=== PATIENT | male | born 1980 | race Caucasian/White ===

== ENCOUNTER 2024-09-19 11:36 | Inpatient (IN) | payer OTHER ==
[2024-09-19] MEDS ORDERED: BENZOCAINE/MENTHOL (CHLORASEPTIC ) LOZENGE MM PRN (12:28)
[2024-09-19] MEDS ORDERED: ACETAMINOPHEN 325 MG TABLET (FP) PO PRN (12:28)
[2024-09-19] MEDS ORDERED: BISMUTH SUBSALICYLATE 262 MG/15 ML BTL PO PRN (12:28)
[2024-09-19] MEDS ORDERED: ONDANSETRON *ODT* 4 MG TABLET SL PRN (12:28)
[2024-09-19] MEDS ORDERED: BENZONATATE 200 MG CAPSULE PO PRN (12:28)
[2024-09-19] MEDS ORDERED: POLYETHYLENE GLYCOL (HEALTHYLAX) 3350 17 GM PACKET PO PRN (12:28)
[2024-09-19] MEDS ORDERED: NICOTINE POLACRILEX 2 MG LOZENGE BC PRN (12:28)
[2024-09-19] MEDS ORDERED: MAG HYDROX/AL HYDROX/SIMETH 30 ML UNIT-DOSE CUP PO PRN (12:28)
[2024-09-19] MEDS ORDERED: IBUPROFEN 400 MG TABLET (FP) PO PRN (12:28)
[2024-09-19] MEDS ORDERED: guaiFENesin 600 MG TABLET.ER (FP) PO PRN (12:28)
[2024-09-19] MEDS ORDERED: MAGNESIUM HYDROX 2400MG/30ML ORAL SUSPENSION 30 ML CUP PO PRN (12:28)
[2024-09-19] MEDS ORDERED: NALOXONE (NARCAN) HCL 4 MG/0.1 ML SPRAY NS PRN (12:28)
[2024-09-19] MEDS ORDERED: LOPERAMIDE HCL 2 MG CAPSULE PO PRN (12:28)
[2024-09-19] MEDS ORDERED: DICYCLOMINE HCL 10 MG CAPSULE PO PRN (12:28)
[2024-09-19 12:31] VITALS: BMI 23.1
[2024-09-19] MEDS: LIDOCAINE 5% TOPICAL PATCH TP SCH (14:45)
[2024-09-19] MEDS: METHOCARBAMOL 500 MG TABLET PO PRN (14:46)
[2024-09-19] MEDS: hydrOXYzine PAMOATE 25 MG CAPSULE (FP) PO PRN (14:46)
[2024-09-19 16:40] LABS: HIV INTERPRETATION NEGATIVE (NEGATIVE)
[2024-09-19] MEDS: diazePAM 5 MG TABLET PO ONE (16:50)
[2024-09-19] MEDS: diazePAM 5 MG TABLET PO SCH (17:05)
[2024-09-19] MEDS: LIDOCAINE PATCH REMOVAL MC SCH (22:04)
[2024-09-19] MEDS: MELATONIN 5 MG TABLETS PO SCH (22:07)
[2024-09-19] MEDS: OLANZapine 10 MG TABLET PO ONE (22:07)
[2024-09-19] MEDS: THIAMINE 100 MG TABLET PO SCH (22:07)
[2024-09-19] MEDS: GABAPENTIN 400 MG CAPSULE PO SCH (22:14)
[2024-09-19] MEDS: MIRTAZAPINE 15 MG TABLET (FP) PO ONE ×2 (22:14→22:15)
[2024-09-20] MEDS: GABAPENTIN 300 MG CAPSULE PO SCH (00:20)
[2024-09-20] MEDS ORDERED: methaDONE HCL 10 MG TABLET PO SCH (06:00)
[2024-09-20] MEDS ORDERED: methaDONE HCL 40 MG DISPERSABLE TABLET PO SCH (10:00)
[2024-09-20] MEDS: PRENATAL VITAMINS W/ FOLIC ACID TABLET (FP) PO SCH (10:08)
[2024-09-20] MEDS: SERTRALINE HCL 50 MG TABLET (FP) PO SCH (11:05)
[2024-09-20 13:44] LABS: HEMATOCRIT 41.6 % (35.4-49); HEMOGLOBIN 13.9 GM/dL (11.7-16.9); MCH 31.1 pg (25.7-33.7); MCHC 33.5 g/dl (32.0-35.9); MEAN CELL VOLUME 92.7 fl (80-96); MEAN PLT VOLUME 8.4 fl (7.5-11.1); PLATELET COUNT 305 10^3/uL (134-434); RBC 4.48 M/mm3 (4.00-5.60); RDW 13.4 % (11.9-15.9)
[2024-09-20 13:47] LABS: POTASSIUM 3.9 mmol/L (3.5-5.1)
[2024-09-20 13:58] LABS: CALCIUM 9.3 mg/dL (8.5-10.1)
[2024-09-20 13:59] LABS: ALBUMIN 3.8 g/dl (3.4-5.0)
[2024-09-20 14:02] LABS: CREATININE 1.1 mg/dL (0.55-1.3)
[2024-09-20 14:03] LABS: BILIRUBIN,TOTAL 0.3 mg/dL (0.2-1)
[2024-09-20 14:06] LABS: BLOOD UREA NITROGEN 8.2 mg/dL (7-18)
[2024-09-20] MEDS: IBUPROFEN 600 MG TABLET (FP) PO PRN (17:41)
[2024-09-21] MEDS: diazePAM 5 MG TABLET PO SCH (05:43)
[2024-09-22] MEDS: diazePAM 5 MG TABLET PO SCH (05:50)
[2024-09-22] MEDS: diazePAM 5 MG TABLET PO PRN (10:16)
[2024-09-22] MEDS: MIRTAZAPINE 15 MG TABLET (FP) PO SCH (22:18)
[2024-09-22] MEDS: OLANZapine 10 MG TABLET PO SCH (22:18)
[2024-09-23 09:17] VITALS: PULSE 95; RESP 18; TEMP 97.5
[2024-09-23] MEDS: NALOXONE (NYS OPIOID OVERDOSE PROGRAM) 4 MG/0.1 ML SPRAY NS SCH (10:05)
[2024-09-23 12:59] VITALS: BP 149/87
== END 2024-09-23 12:25 | disposition other institution (70) | DRG 773 ==
LOC: YASAS 11:36 → Y6N 13:42
PROVIDERS: ADMIT Allergy & Immunology; ATTEND Surgery
PROC: HZ2ZZZZ Detoxification Services for Substance Abuse Treatment (ICD-10-PCS; principal; 2024-09-19)
DX: F10.230 Alcohol dependence with withdrawal, uncomplicated (principal); F12.20 Cannabis dependence, uncomplicated; F11.20 Opioid dependence, uncomplicated; F14.20 Cocaine dependence, uncomplicated; F13.230 Sedative, hypnotic or anxiolytic dependence with withdrawal, uncomplicated; F17.210 Nicotine dependence, cigarettes, uncomplicated; F19.282 Other psychoactive substance dependence with psychoactive substance-induced sleep disorder; F19.280 Other psychoactive substance dependence with psychoactive substance-induced anxiety disorder; F19.24 Other psychoactive substance dependence with psychoactive substance-induced mood disorder; F31.9 Bipolar disorder, unspecified; B18.2 Chronic viral hepatitis C; Z62.810 Personal history of physical and sexual abuse in childhood
CPT/HCPCS: 36415; 80053; 80307; 85027; 86780; 86803; 87389; 87522; 93005; 93010

== ENCOUNTER 2024-09-23 12:15 | Inpatient (IN) | payer OTHER ==
[2024-09-23] MEDS ORDERED: BENZONATATE 200 MG CAPSULE PO PRN (15:49)
[2024-09-23] MEDS ORDERED: MAGNESIUM HYDROX 2400MG/30ML ORAL SUSPENSION 30 ML CUP PO PRN (15:49)
[2024-09-23] MEDS ORDERED: METHOCARBAMOL 500 MG TABLET PO PRN (15:49)
[2024-09-23] MEDS ORDERED: hydrOXYzine PAMOATE 25 MG CAPSULE (FP) PO PRN (15:49)
[2024-09-23] MEDS ORDERED: guaiFENesin 600 MG TABLET.ER (FP) PO PRN (15:49)
[2024-09-23] MEDS ORDERED: POLYETHYLENE GLYCOL (HEALTHYLAX) 3350 17 GM PACKET PO PRN (15:49)
[2024-09-23] MEDS ORDERED: BENZOCAINE/MENTHOL (CHLORASEPTIC ) LOZENGE MM PRN (15:49)
[2024-09-23] MEDS ORDERED: MAG HYDROX/AL HYDROX/SIMETH 30 ML UNIT-DOSE CUP PO PRN (15:49)
[2024-09-23] MEDS ORDERED: IBUPROFEN 400 MG TABLET (FP) PO PRN (15:49)
[2024-09-23] MEDS: ACETAMINOPHEN 325 MG TABLET (FP) PO PRN (17:43)
[2024-09-23] MEDS: PRENATAL VITAMINS W/ FOLIC ACID TABLET (FP) PO SCH (17:45)
[2024-09-23] MEDS: NICOTINE 14 MG/24 HOURS TOPICAL PATCH TD SCH (17:45)
[2024-09-23] MEDS: LIDOCAINE 5% TOPICAL PATCH TP SCH (17:45)
[2024-09-23] MEDS: MELATONIN 5 MG TABLETS PO SCH (21:38)
[2024-09-23] MEDS: MIRTAZAPINE 15 MG TABLET (FP) PO SCH (21:38)
[2024-09-23] MEDS: THIAMINE 100 MG TABLET PO SCH (21:38)
[2024-09-23] MEDS: GABAPENTIN 100 MG CAPSULE PO SCH (21:39)
[2024-09-23] MEDS: LIDOCAINE PATCH REMOVAL MC SCH (22:06)
[2024-09-24] MEDS ORDERED: methaDONE HCL 40 MG DISPERSABLE TABLET PO SCH (10:00)
[2024-09-24] MEDS: SERTRALINE HCL 50 MG TABLET (FP) PO SCH (10:21)
[2024-09-24] MEDS: OLANZapine 10 MG TABLET PO SCH (21:56)
[2024-09-24] MEDS: GABAPENTIN 400 MG CAPSULE PO SCH (21:56)
[2024-09-26] MEDS: LOPERAMIDE HCL 2 MG CAPSULE PO PRN (00:48)
[2024-10-02] MEDS: IBUPROFEN 600 MG TABLET (FP) PO PRN (06:31)
[2024-10-04 06:37] VITALS: RESP 16
[2024-10-06 06:25] VITALS: BP 149/91; PULSE 85; TEMP 97.3
[2024-10-06] MEDS: NALOXONE (NYS OPIOID OVERDOSE PROGRAM) 4 MG/0.1 ML SPRAY NS SCH (09:24)
== END 2024-10-06 09:43 | disposition home or self-care (01) | DRG 772 ==
LOC: YASAS 12:15 → Y3NR 13:05 → Y3W 21:45
PROVIDERS: ADMIT Psychiatry & Neurology Pain Medicine; ATTEND Family Medicine Addiction Medicine
PROC: HZ42ZZZ Group Counseling for Substance Abuse Treatment, Cognitive-Behavioral (ICD-10-PCS; principal; 2024-09-23)
DX: F10.20 Alcohol dependence, uncomplicated (principal); F11.20 Opioid dependence, uncomplicated; F14.20 Cocaine dependence, uncomplicated; F13.20 Sedative, hypnotic or anxiolytic dependence, uncomplicated; F17.210 Nicotine dependence, cigarettes, uncomplicated; F20.9 Schizophrenia, unspecified; F31.9 Bipolar disorder, unspecified; F19.282 Other psychoactive substance dependence with psychoactive substance-induced sleep disorder; F19.280 Other psychoactive substance dependence with psychoactive substance-induced anxiety disorder; F19.24 Other psychoactive substance dependence with psychoactive substance-induced mood disorder; F41.9 Anxiety disorder, unspecified; I10 Essential (primary) hypertension; Z86.19 Personal history of other infectious and parasitic diseases
CPT/HCPCS: 36415; 86803; 87522

== ENCOUNTER 2025-07-26 13:33 | Inpatient (IN) | payer OTHER ==
[2025-07-26 14:14] VITALS: BMI 25.2
[2025-07-26] MEDS ORDERED: NALOXONE (NARCAN) HCL 4 MG/0.1 ML SPRAY NS PRN (14:32)
[2025-07-26] MEDS ORDERED: BISMUTH SUBSALICYLATE 524 MG/30 ML PO PRN (14:32)
[2025-07-26] MEDS ORDERED: POLYETHYLENE GLYCOL (HEALTHYLAX) 3350 17 GM PACKET PO PRN (14:32)
[2025-07-26] MEDS ORDERED: NICOTINE POLACRILEX 2 MG GUM BUC PRN (14:32)
[2025-07-26] MEDS ORDERED: IBUPROFEN 400 MG TABLET (FP) PO PRN (14:32)
[2025-07-26] MEDS ORDERED: MAG HYDROX/AL HYDROX/SIMETH 30 ML UNIT-DOSE CUP PO PRN (14:32)
[2025-07-26] MEDS ORDERED: MAGNESIUM HYDROX 2400MG/30ML ORAL SUSPENSION 30 ML CUP PO PRN (14:32)
[2025-07-26] MEDS ORDERED: BENZOCAINE/MENTHOL (CHLORASEPTIC ) LOZENGE MM PRN (14:32)
[2025-07-26] MEDS ORDERED: ONDANSETRON *ODT* 4 MG TABLET SL PRN (14:32)
[2025-07-26] MEDS ORDERED: BENZONATATE 200 MG CAPSULE PO PRN (14:32)
[2025-07-26] MEDS ORDERED: guaiFENesin 600 MG TABLET.ER (FP) PO PRN (14:32)
[2025-07-26] MEDS ORDERED: ACETAMINOPHEN 325 MG TABLET (FP) PO PRN (14:32)
[2025-07-26] MEDS ORDERED: hydrOXYzine PAMOATE 25 MG CAPSULE (FP) PO PRN (14:32)
[2025-07-26] MEDS ORDERED: LOPERAMIDE HCL 2 MG CAPSULE PO PRN (14:32)
[2025-07-26] MEDS ORDERED: DICYCLOMINE HCL 10 MG CAPSULE PO PRN (14:32)
[2025-07-26] MEDS ORDERED: IBUPROFEN 600 MG TABLET (FP) PO PRN (14:32)
[2025-07-26] MEDS ORDERED: amLODIPine BESYLATE 5 MG TABLET (FP) ONE (17:38)
[2025-07-26] MEDS: amLODIPine BESYLATE 10 MG TABLET (FP) PO SCH (17:40)
[2025-07-26] MEDS: ACAMPROSATE CALCIUM 333 MG TABLET.DR PO SCH (22:17)
[2025-07-26] MEDS: MIRTAZAPINE 15 MG TABLET (FP) PO SCH (22:17)
[2025-07-26] MEDS: THIAMINE 100 MG TABLET PO SCH (22:18)
[2025-07-26] MEDS: MELATONIN 5 MG TABLETS PO SCH (22:18)
[2025-07-26] MEDS: GABAPENTIN 300 MG CAPSULE PO SCH (22:18)
[2025-07-26] MEDS: levETIRAcetam 500 MG TABLET (FP) PO SCH (22:18)
[2025-07-27] MEDS: PRENATAL VITAMINS W/ FOLIC ACID TABLET (FP) PO SCH (09:43)
[2025-07-27 10:18] LABS: MCHC 31.5 g/dl (32.3-36.5); MEAN CELL VOLUME 93.9 fl (79.0-92.2); MEAN PLT VOLUME 9.9 fl (9.4-12.4); RDW 12.4 % (12.1-15.9)
[2025-07-27 10:24] LABS: GLUCOSE,RANDOM 95 mg/dL (74-106); TOT PROT 6.3 g/dl (6.4-8.2)
[2025-07-27 10:25] LABS: CO2 28 mmol/L (21-32)
[2025-07-27 10:26] LABS: ALK PHOS 78 U/L (40-150)
[2025-07-27 10:29] LABS: CREATININE 0.93 mg/dL (0.55-1.3); SGOT/AST 60 U/L (5-34); SGPT/ALT 13 U/L (0-55)
[2025-07-27 12:32] LABS: HIV INTERPRETATION NEGATIVE (NEGATIVE)
[2025-07-27 12:56] LABS: HCV DIAGNOSTIC IN-HOUSE W/RFLX REACTIVE (NONREACTIVE)
[2025-07-27] MEDS: [UNRECOGNIZED DRUG - OTHER] TP SCH (15:03)
[2025-07-27] MEDS: HYPOCHLOROUS ACID TP SCH (15:03)
[2025-07-27] MEDS: SODIUM CHLORIDE TP SCH (15:03)
[2025-07-27] MEDS: [UNRECOGNIZED DRUG - OTHER] TP SCH (15:03)
[2025-07-29] MEDS: METHOCARBAMOL 500 MG TABLET PO PRN (21:44)
[2025-07-30 09:13] VITALS: BP 123/81; PULSE 90; RESP 17; TEMP 98.3
== END 2025-07-30 12:01 | disposition home or self-care (01) | DRG 773 ==
LOC: SUATTDRO 13:33 → YASAS 13:33 → Y3N 17:12
PROVIDERS: ADMIT Family Medicine; ATTEND Allergy & Immunology
PROC: HZ2ZZZZ Detoxification Services for Substance Abuse Treatment (ICD-10-PCS; principal; 2025-07-26)
DX: F10.230 Alcohol dependence with withdrawal, uncomplicated (principal); F13.230 Sedative, hypnotic or anxiolytic dependence with withdrawal, uncomplicated; F11.20 Opioid dependence, uncomplicated; F14.20 Cocaine dependence, uncomplicated; F12.20 Cannabis dependence, uncomplicated; F17.210 Nicotine dependence, cigarettes, uncomplicated; F25.9 Schizoaffective disorder, unspecified; F19.282 Other psychoactive substance dependence with psychoactive substance-induced sleep disorder; F19.280 Other psychoactive substance dependence with psychoactive substance-induced anxiety disorder; F19.24 Other psychoactive substance dependence with psychoactive substance-induced mood disorder; Z62.810 Personal history of physical and sexual abuse in childhood
CPT/HCPCS: 36415; 80053; 80177; 80305; 80307; 85027; 86780; 86803; 87389; 87522; 93005; 93010